=== PATIENT | female | born 1975 | race African-American/Black ===

== ENCOUNTER 2023-01-22 23:45 | Emergency (ER) | payer BC ==
--- OUTSIDE RECORDS SUMMARY | 2023-01-22 23:47 | XMS REPORT | Continuity of Care Document ---
:1975 Author Organization [facility] t Address [address] [place] [address] [place] [id number] Care Team Providers Name Role Phone Taylor Minor Attending Clinician Unavailable Payers Payer Name Policy Type Policy Number Effective Date Expiration Date S marta AETNA C1 [id number] [facility] AETNA C1 [id number] [facility] CIGNA C1 [id number] [facility] Problems Condition Condition Condition Status Onset Resolution Last Treating Co mments Source Name Details Category Date Date Treatment Clinician Date [id number] Encounter Problem Active Com mon for [facility] screening - [facility] mammogram [facility] breast [facility] cancer [facility] [id number] Encounter Problem Active Commo n for [facility] surveillan - [facility] shelbi [facility] [id number] Encounter Problem Active Com mon for [facility] finding Allergies, Adverse Reactions, Alerts This patient has no known allergies or adverse reactions. Social History Social Habit Start Date Stop Date Quantity Comments Source History of Tobacco Use Co mmon [facility] Sex Assigned At Com mon [facility] Smoking Status Start Date Stop Date Source Never Smoker [facility] Medications Ordered Filled Start Stop Current Ordering Indication Dosage Frequency Signature Comments Components Source Medication Medication Date Date Medication? Clinician (SIG) Name Name Dolores Bernal 2018- Jose E as Aurea gallo 04-02 [facility]hi directed [facility] Yes Jose E 1 tablet Common 08-13 [facility] 00:00: - [facility] 00 [facility] No 1{table QD Sprintec 0.25-35 0.25-35 2-05 t} 28 0.25-35 MG-MCG MG-MCG 00:00: [facility] No 1{table QD Sprintec 0.25-35 0.25-35 2-05 t} 28 0.25-35 MG-MCG MG-MCG 00:00: MG[facility]MCG [facility] No 1{table QD Sprintec 0.25-35 0.25-35 2-05 t} 28 0.25-35 MG-MCG MG-MCG 00:00: MG-MCG [facility] No 1{table QD Sprintec 0.25-35 0.25-35 2-05 t} 28 0.25-35 MG-MCG MG-MCG 00:00: MG-MCG [facility] No 1{table QD Sprintec 0.25-35 0.25-35 2-05 t} 28 0.25-35 MG-MCG MG-MCG 00:00: MG-MCG 00 Pantoprazol Pantoprazol No Pantoprazo e Sodium e Sodium le Sodium Glycopyrrol Glycopyrrol No Glycopyrro ate ate late Glycopyrrol Glycopyrrol No Glycopyrro ate ate late Pantoprazol Pantoprazol No Pantoprazo e Sodium e Sodium le Sodium Glycopyrrol Glycopyrrol No Glycopyrro ate ate late Pantoprazol Pantoprazol No Pantoprazo e Sodium e Sodium le Sodium Estarylla Estarylla No Estarylla Pantoprazol Pantoprazol No Pantoprazo e Sodium e Sodium le Sodium Vitamin D3 Vitamin D3 No Vitamin D3 Glycopyrrol Glycopyrrol No Glycopyrro ate ate late Estarylla Estarylla No Estarylla Pantoprazol Pantoprazol No Pantoprazo e Sodium e Sodium le Sodium Vitamin D3 Vitamin D3 No Vitamin D3 Glycopyrrol Glycopyrrol No Glycopyrro ate ate late Immunizations Ordered Immunization Filled Immunization Date Status Commen ts Source Name Name Lidocaine Lidocaine 2020-12-16 Completed [facility] 14:24:00 - [facility] Lidocaine Lidocaine 2020-12-16 Completed [facility] 14:: - [facility] Depo-Medrol Depo-Medrol 2020-12-16 Completed [facility] (Methylprednisolone) (Methylprednisolone) 14:: - [facility] 40[facility] 40mg [facility] Depo-Medrol Depo-Medrol 2020-12-16 Completed [facility] (Methylprednisolone) (Methylprednisolone) 14:: [facility] 40[facility] 40mg [facility] Lidocaine Lidocaine 2020-04-12 Completed [facility] 15:51: - [facility] Lidocaine Lidocaine 2020-04-12 Completed [facility] 15:51:00 - [facility] Lidocaine Lidocaine 2020-04-12 Completed [facility] 15:51:00 - [facility] Lidocaine Lidocaine 2020-04-12 Completed [facility] 15:51:00 - [facility] Lidocaine Lidocaine 2020-04-12 Completed [facility] 15:51:00 - [facility] Depo-Medrol Depo-Medrol 2020-04-12 Completed [facility] (Methylprednisolone) (Methylprednisolone) 15:48:00 - [facility] 40[facility] 40mg [facility] Depo-Medrol Depo-Medrol 2020-04-12 Completed [facility] (Methylprednisolone) (Methylprednisolone) 15:48:00 - [facility] 40[facility] 40mg [facility] Depo-Medrol Depo-Medrol 2020-04-12 Completed [facility] (Methylprednisolone) (Methylprednisolone) 15:48:00 - [facility] 40[facility] 40mg [facility] Depo-Medrol Depo-Medrol 2020-04-12 Completed [facility] (Methylprednisolone) (Methylprednisolone) 15:48:00 - [facility] 40[facility] 40mg [facility] Depo-Medrol Depo-Medrol 2020-04-12 Completed [facility] (Methylprednisolone) (Methylprednisolone) 15:48:[address] [facility] 40[facility] 40mg [facility] Vital Signs Vital Name Observation Time Observation Value Comments Source height 2020-12-16 14:00:00 63 [in_i] Common [facility] weight 2020-12-16 14:00:00 160 [lb_av] [facility] bmi 2020-12-16 14:00:00 28.34 kg/m2 [facility] blood pressure 2020-12-16 14:00:00 133 mm[Hg] [facility] - systolic [facility] blood pressure 2020-12-16 14:00:00 91 mm[Hg] [facility] - diastolic [facility] height 2020-04-12 15:00:00 63 [in_i] Common [facility] weight 2020-04-12 15:00:00 155 [lb_av] [facility] bmi 2020-04-12 15:00:00 27.45 kg/m2 [facility] blood pressure 2020-04-12 15:00:00 130 mm[Hg] [facility] - systolic [facility] blood pressure 2020-04-12 15:00:00 93 mm[Hg] [facility] - diastolic [facility] Procedures This patient has no known procedures. Encounters Start End Encounter Admission Attending Care Care Encounter Source Date/Time Date/Time Type Type Clinicians Facility Department ID 2023-01-05 Outpatient Minor, STLMLC STLMLC [id number] Common 10:37:00 [facility] [address] [facility] 2022-06-29 Outpatient Minor, STLMLC STLMLC [id number] Common 15:34:00 [facility] [address] Sp[facility] 2021-08-03 Outpatient Minor, STLMLC STLMLC [id number] Common 13:13:18 [facility] [address] Sp[facility] 2021-08-03 Outpatient Minor, STLMLC STLMLC [id number] Common 11:45:59 [facility] [address] Sp[facility] 2021-04-11 2021-04-11 (TEL) STLMLC STLMLC [id number] Co mmon 00:00:00 00:00:00 [facility] 2020-12-16 2020-12-16 OFFICE STLMLC STLMLC [id number] Co mmon 00:00:00 00:00:00 VISIT EST Spir it PT LEVEL 3 [facility] 2020-10-28 2020-10-28 (TEL) STLMLC STLMLC [id number] Co mmon 00:00:00 00:00:00 [facility] 2020-10-25 2020-10-25 (TEL) STLMLC STLMLC [id number] Co mmon 00:00:00 00:00:00 [facility] 2020-04-12 2020-04-12 OFFICE STLMLC STLMLC [id number] Co mmon 00:00:00 00:00:00 VISIT EST Spir it PT LEVEL 3 [facility] 2019-04-02 2019-04-02 [id number] Common 11:15:00 11:15:00 [facility] 2018-10-10 2018-10-10 [id number] Common 08:00:00 08:00:00 [facility] Results This patient has no known results.
[2023-01-23] MEDS ORDERED: KETOROLAC 30 MG/ML INJ ONE (00:19)
[2023-01-23 00:35] LABS: Absolute Lymphocytes (CBC) 1.8 K/uL (0.7-4.9); Hematocrit 37.5 % (36.0-45.0); Lymphocytes % 22.6 % (15.3-44.8); MCV 79.4 fL (80-100); MPV 9.4 fL (7.6-11.3); RBC Red Blood Cell Count 4.72 M/uL (3.86-4.86)
[2023-01-23 00:49] LABS: ALT/SGPT 32 U/L (13-56); AST/SGOT 19 U/L (15-37); Albumin 3.7 g/dL (3.4-5.0); Alkaline Phosphatase 44 U/L (45-117); BUN Blood Urea Nitrogen 16 mg/dL (7-18); Bicarbonate 23 mEq/L (21-32); Bilirubin Total 0.3 mg/dL (0.2-1.0); Glomerular Filtration Rate 63 ml/min (=/>90); Glucose Level 104 mg/dL (74-106); Magnesium 2.3 mg/dL (1.6-2.4); Potassium 3.5 mEq/L (3.5-5.1); Protein, Total 7.6 g/dL (6.4-8.2); Sodium Level 136 mEq/L (136-145); Troponin High Sensitivity 3.7 pg/mL (<58.9)
[2023-01-23 00:50] LABS: Bilirubin Direct < 0.1 mg/dL (0-0.2); Bilirubin Indirect, Calculated ND mg/dL (0.2-0.8)
--- NOTE | 2023-01-23 01:31 | ER ---
Nurse's Notes [facility] Name: Macie Marinelli Age: 47 yrs Sex: Female : 1975 Arrival Date: 01/22/2023 Time: 23:45 Bed 16 Private MD: Diagnosis: Headache, vertigo peripheral Presentation: 01/22 23:55 Chief complaint: Patient states: pt reports dizziness and headache x1 month. as6 Coronavirus screen: At this time, the client does not indicate any symptoms associated with coronavirus-19. Ebola Screen: No symptoms or risks identified at this time. Initial Sepsis Screen: Does the patient meet any 2 criteria? No. Patient's initial sepsis screen is negative. Does the patient have a suspected source of infection? No. Patient's initial sepsis screen is negative. Risk Assessment: Do you want to hurt yourself or someone else? Patient reports no desire to harm self or others. Onset of symptoms is unknown. 23:55 Acuity: NAKUL 3 as6 23:55 Method Of Arrival: Ambulatory as6 Historical: - Allergies: 23:55 No Known Allergies; as6 - PMHx: 23:55 GERD; as6 - PSHx: 23:55 section; as6 - Immunization history:: Client reports receiving the 2nd dose of the Covid vaccine, moderna. - Social history:: Smoking status: Patient denies any tobacco usage or history of. Screenin/18 00:00 Abuse screen: Denies threats or abuse. Denies injuries from another. Nutritional ha1 screening: No deficits noted. Tuberculosis screening: No symptoms or risk factors identified. 01:47 [facility] ED Fall Risk Assessment (Adult) History of falling in the last 3 months, rv including since admission No falls in past 3 months (0 pts) Confusion or Disorientation No (0 pts) Intoxicated or Sedated No (0 pts) Impaired Gait No (0 pts) Mobility Assist Device Used No (0 pt) Altered Elimination No (0 pt) Score/Fall Risk Level 0 - 2 = Low Risk Oriented to surroundings, Maintained a safe environment, Educated pt \T\ family on fall prevention, incl call for assistance when getting out of bed, Assessed \T\ reinforced patient's understanding of fall precautions, Provided non-skid footwear, Hourly rounding (assess needs \T\ fall precautionary measures) done, Used ambulatory aids as needed (educated on \T\ assisted with), Used gait belt as appropriate. Assessment: 01/22 23:48 General: Appears comfortable, Behavior is calm, cooperative. Pain: Complains of pain in ha1 left side of head Pain does not radiate. Pain currently is 8 out of 10 on a pain scale. Quality of pain is described as pressure. Neuro: Level of Consciousness is awake, alert, obeys commands, Oriented to person, place, time, situation. Neuro: Reports dizziness, since a month ago. Cardiovascular: Patient's skin is warm and dry. Respiratory: Airway is patent Respiratory effort is even, unlabored, Respiratory pattern is regular, symmetrical. GI: No signs and/or symptoms were reported involving the gastrointestinal system. Derm: Skin is healthy with good turgor, Skin is moist, Skin is normal. Musculoskeletal: Circulation, motion, and sensation intact. 01/23 00:50 Reassessment: Patient and/or family updated on plan of care and expected duration. Pain ha1 level reassessed. Patient is alert, oriented x 3, equal unlabored respirations, skin warm/dry/pink. Vital Signs: 01/22 23:55 BP 150 / 109; Pulse 87; Resp 18 S; Temp 98.1(O); Pulse Ox 100% on R/A; Weight 77.11 kg as6 (R); Height 5 ft. 3 in. (R); Pain 4/10; 18 00:00 BP 142 / 89; Pulse 67; Resp 18 S; Pulse Ox 100% ; ha1 01:00 BP 139 / 92; Pulse 56; Resp 15 S; Pulse Ox 100% on R/A; ha1 01:48 BP 127 / 91; Pulse 86; Resp 16; Temp 98; Pulse Ox 99% on R/A; rv 01/22 23:55 Body Mass Index 30.11 (77.11 kg, 160.02 cm) as6 01/22 23:55 Pain Scale: Adult as6 ED Course: 01/22 23:47 Patient arrived in ED. ag3 23:48 Luis Manuel Gaffney MD is Attending Physician. sp3 23:48 Patient has correct armband on for positive identification. Placed in gown. Bed in low ha1 position. Call light in reach. Side rails up X 1. 23:50 Ethan Loza, TAMIA is Primary Nurse. rv 23:55 Arm band placed on. as6 23:57 Triage completed. as6 01/23 00:05 Thelma Clements RN is Primary Nurse. ha1 00:05 Basic Metabolic Panel Sent. ha1 00:05 CBC with Diff Sent. ha1 00:05 LFT's Sent. ha1 00:05 Magnesium Sent. ha1 00:05 Troponin HS Sent. ha1 00:08 Primary Nurse role handed off by Thelma Clements RN rv 00:08 Ethan Loza, RN is Primary Nurse. rv 00:10 Inserted saline lock: 20 gauge in left antecubital area, using aseptic technique. Blood rv collected. 00:21 Thelma Clements RN is Primary Nurse. ha1 00:52 CT Head Brain wo Cont In Process Unspecified. EDMS 01:30 Mu Roberson MD is Referral Physician. sp3 01:46 No provider procedures requiring assistance completed. IV discontinued, intact, rv bleeding controlled, No redness/swelling at site. Pressure dressing applied. 01:48 Provided Education on: HIGH BLOOD PRESSURE. rv Administered Medications: 00:07 Drug: Ketorolac IVP 30 mg Route: IVP; Site: left antecubital; ha1 01:48 Follow up: Response: No adverse reaction; Marked relief of symptoms rv Medication: 01:47 VIS not applicable for this client. rv Outcome: 01:30 Discharge ordered by . sp3 01:47 Discharged to home ambulatory. rv 01:47 Condition: improved 01:47 Discharge instructions given to patient, Instructed on discharge instructions, follow up and referral plans. medication usage, Demonstrated understanding of instructions, follow-up care, medications, Prescriptions given X 1. 01:48 Patient left the ED. rv Signatures: Dispatcher [employer] EDCA Ethan Loza, TAMIA CANTRELL rv Kim West 3 Luis Manuel Gaffney MD MD sp3 Deion Harp RN RN as6 Thelma Clements RN RN ha1 Corrections: (The following items were deleted from the chart) 00:22 00:21 Ketorolac IVP 30 mg IVP in left antecubital ha1 ha1
--- NOTE | 2023-01-23 01:31 | EDPHYS ---
Physician Documentation [facility] Name: Macie Marinelli Age: 47 yrs Sex: Female : 1975 Arrival Date: 01/22/2023 Time: 23:45 Bed 16 Private MD: ED Physician Luis Manuel Gaffney HPI: 01/23 00:03 This 47 yrs old Black Female presents to ER via Ambulatory with complaints of Dizziness sp3 and headache. 00:03 47-year-old female with history of GERD who presents to the ED with chief complaint sp3 headache and vertigo for greater than 3 days. Patient saw her PCP who did outpatient laboratory labs and prescribed meclizine p.o. which has minimally helped. Today patient developed worsening headache and so she decided to present to the ED for evaluation. She denies thunderclap headache, fever, neck pain, chest pain, shortness of breath, URI symptoms, sinus pain, abdominal pain, nausea, vomiting, diarrhea, rash, syncope, near syncope, focal neurodeficit, known sick contacts, recent travel history, or any other signs or symptoms on ROS at this time. Pain is currently described as a 4 out of 10 and waxes and wanes. Headache is generalized and vertigo is worse with movement but self resolves. Patient did drive herself to the ED today.. Historical: - Allergies: 01/22 23:55 No Known Allergies; as6 - PMHx: 23:55 GERD; as6 - PSHx: 23:55 section; as6 - Immunization history:: Client reports receiving the 2nd dose of the Covid vaccine, moderna. - Social history:: Smoking status: Patient denies any tobacco usage or history of. ROS: 01/23 00:04 Constitutional: Negative for fever, chills, and weight loss, Eyes: Negative for injury, sp3 pain, redness, and discharge, ENT: Negative for injury, pain, and discharge, Neck: Negative for injury, pain, and swelling, Cardiovascular: Negative for chest pain, palpitations, and edema, Respiratory: Negative for shortness of breath, cough, wheezing, and pleuritic chest pain, Abdomen/GI: Negative for abdominal pain, nausea, vomiting, diarrhea, and constipation, Back: Negative for injury and pain, MS/Extremity: Negative for injury and deformity, Skin: Negative for injury, rash, and discoloration, Allergy/Immunology: Negative for hives, rash, and allergies, Endocrine: Negative for neck swelling, polydipsia, polyuria, polyphagia, and marked weight changes, Hematologic/Lymphatic: Negative for swollen nodes, abnormal bleeding, and unusual bruising. All other systems are negative. Exam: 00:04 Constitutional: This is a well developed, well nourished patient who is awake, alert, sp3 and in no acute distress. Head/Face: Normocephalic, atraumatic. Eyes: Pupils equal round and reactive to light, extra-ocular motions intact. Lids and lashes normal. Conjunctiva and sclera are non-icteric and not injected. Cornea within normal limits. Periorbital areas with no swelling, redness, or edema. ENT: Nares patent. No nasal discharge, no septal abnormalities noted. External auditory canals are clear. Oropharynx with no redness, swelling, or masses, exudates, or evidence of obstruction, uvula midline. Mucous membranes moist. Neck: Trachea midline, no thyromegaly or masses palpated, and no cervical lymphadenopathy. Supple, full range of motion without nuchal rigidity, or vertebral point tenderness. No Meningismus. Chest/axilla: Normal chest wall appearance and motion. Nontender with no deformity. No lesions are appreciated. Cardiovascular: Regular rate and rhythm with a normal S1 and S2. No gallops, murmurs, or rubs. Normal PMI, no JVD. No pulse deficits. Respiratory: Lungs have equal breath sounds bilaterally, clear to auscultation and percussion. No rales, rhonchi or wheezes noted. No increased work of breathing, no retractions or nasal flaring. Abdomen/GI: Soft, non-tender, with normal bowel sounds. No distension or tympany. No guarding or rebound. No evidence of tenderness throughout. Back: No spinal tenderness. No costovertebral tenderness. Full range of motion. Skin: Warm, dry with normal turgor. Normal color with no rashes, no lesions, and no evidence of cellulitis. MS/ Extremity: Pulses equal, no cyanosis. Neurovascular intact. Full, normal range of motion. Neuro: Awake and alert, GCS 15, oriented to person, place, time, and situation. Cranial nerves II-XII grossly intact. Motor strength 5/5 in all extremities. Sensory grossly intact. Cerebellar exam normal. Normal gait. Psych: Awake, alert, with orientation to person, place and time. Behavior, mood, and affect are within normal limits. 01:34 ECG was reviewed by the Attending Physician. EKG demonstrates normal sinus rhythm at 61 sp3 bpm with normal intervals, normal axis, normal QRS, nonspecific diffuse ST/T changes without evidence of ischemia particularly in leads III with no reciprocal changes. Vital Signs: 01/22 23:55 BP 150 / 109; Pulse 87; Resp 18 S; Temp 98.1(O); Pulse Ox 100% on R/A; Weight 77.11 kg as6 (R); Height 5 ft. 3 in. (R); Pain 4/10; 01/23 00:00 BP 142 / 89; Pulse 67; Resp 18 S; Pulse Ox 100% ; ha1 01:00 BP 139 / 92; Pulse 56; Resp 15 S; Pulse Ox 100% on R/A; ha1 01:48 BP 127 / 91; Pulse 86; Resp 16; Temp 98; Pulse Ox 99% on R/A; rv 01/22 23:55 Body Mass Index 30.11 (77.11 kg, 160.02 cm) as6 01/22 23:55 Pain Scale: Adult as6 MDM: 01/22 23:57 Patient medically screened. sp3 01/23 00:05 Data reviewed: vital signs, nurses notes, lab test result(s), EKG, radiologic studies. sp3 ED course: 47-year-old female with vertigo and headache. Differential diagnosis is broad and includes inner ear pathology including labyrinthitis, CVA, ICH, tumor or mass, viral syndrome, among others. I am not highly suspicious for central vertigo and this is most likely peripheral in nature. Will obtain CT scan of the head, laboratory values, EKG, and administer ketorolac 30 mg IV for pain control. Patient declined further meclizine at this time. If work-up is negative, would safely discharge patient home with neurology follow-up.. 01:30 ED course: CT scan is negative and patient is improved. We will safely discharge her sp3 home with follow-up with neurology Dr. Roberson.. 01/22 23:59 Order name: Basic Metabolic Panel; Complete Time: 01:04 as6 01/22 23:59 Order name: CBC with Diff; Complete Time: 01:04 01/22 23:59 Order name: LFT's; Complete Time: 01:04 01/22 23:59 Order name: Magnesium; Complete Time: 01:04 01/22 23:59 Order name: Troponin HS; Complete Time: 01:04 01/22 23:59 Order name: CT Head Brain wo Cont 01/22 23:59 Order name: EKG; Complete Time: 00:00 01/22 23:59 Order name: Cardiac monitoring; Complete Time: 00:05 01/22 23:59 Order name: EKG - Nurse/Tech; Complete Time: 00:46 01/22 23:59 Order name: IV Saline Lock; Complete Time: 00:05 01/22 23:59 Order name: Labs collected and sent; Complete Time: 00:05 01/22 23:59 Order name: O2 Sat Monitoring; Complete Time: 00:05 Administered Medications: 00:07 Drug: Ketorolac IVP 30 mg Route: IVP; Site: left antecubital; ha1 01:48 Follow up: Response: No adverse reaction; Marked relief of symptoms rv Disposition Summary: 01/23/23 01:30 Discharge Ordered Location: Home sp3 Condition: Stable sp3 Diagnosis - Headache, vertigo peripheral sp3 Followup: sp3 - With: Mu Roberson MD - When: Upon discharge from the Emergency Department - Reason: Recheck today's complaints Discharge Instructions: - Discharge Summary Sheet sp3 - General Headache Without Cause sp3 - Vertigo sp3 Forms: - Medication Reconciliation Form sp3 - Thank You Letter sp3 - Antibiotic Education sp3 - Prescription Opioid Use sp3 - Patient Portal Instructions sp3 Prescriptions: - Diclofenac Sodium 75 mg Oral Tablet Sustained Release - take 1 tablet by ORAL route 2 times per day; 30 tablet; Refills: 0, Product sp3 Selection Permitted Signatures: Dispatcher [employer] Luis Manuel Echeverria MD MD sp3 Deion Harp RN RN as6 Thelma Clements RN RN ha1 Ethan Loza RN rv
[2023-01-23 03:35] VITALS: BP 127/91; TEMP 98; O2SAT 99
--- NOTE | 2023-01-23 16:19 | RAD REPORT ---
EXAM DESCRIPTION: CT - Head Brain Wo Cont - 01/23/2023 1:55 am CLINICAL HISTORY: 47 years Female Dizziness;Headache COMPARISON: None TECHNIQUE: Contiguous axial images of the brain were obtained without the administration of intraven ous contrast.This exam was performed according to our departmental dose-optimization program which in cludes use of Automated Exposure Control, adjustment of the mA and/or kV according to patient size an d/or use of iterative reconstruction technique. DLP: 846 mGy*cm FINDINGS: Brain: No acute intracranial hemorrhage. No extra-axial collection. No mass effect or laureen iation. Ventricles: Within normal limits in size. Globes and orbits: No acute abnormality. Bones: No acute osseous finding Paranasal sinuses: Paranasal sinuses are clear. Mastoid air cells: Well pneumatized. Soft tissues: Within normal limits IMPRESSION: No acute intracranial abnormality. Electronically signed by: Yg Otoole DO 01/23/2023 1:04 AM CDT Due to temporary technical issues with the PACS/Fluency reporting system, reports are being signed by the in house radiologists without review as a courtesy to insure prompt reporting. The interpreting radiologist is fully responsible for the content of the report.
--- NOTE | 2023-01-23 20:38 | EKG ---
Test Date: 2023-01-23 Test Time: 00:39:08 Building Operator: MARIO MEASUREMENT RESULTS: Intervals: Rate: 61 RI: 158 QRSD: 78 QT: 446 QTc: 448 [place]: P: 50 RI: 158 QRS: 51 T: 43 INTERPRETIVE STATEMENTS: Normal sinus rhythm Normal ECG Compared to ECG 02/28/2008 11:43:54 Sinus arrhythmia no longer present Electronically Signed On 01-23-23 20:37:21 CDT by Jose Peters
== END 2023-01-23 01:48 | disposition home or self-care (01) ==
LOC: ER 23:45
DX: R51.9 Headache, unspecified (principal); H81.399 Other peripheral vertigo, unspecified ear
CPT/HCPCS: 36415; 70450; 80048; 80076; 83735; 84484; 85025; 93005; 96374; 99284

== ENCOUNTER 2023-10-05 06:32 | Day surgery (SDC) | payer BC ==
[2023-10-03 16:13] LABS: Absolute Eosinophils 0.1 K/uL (0-0.5); Absolute Lymphocytes (CBC) 1.8 K/uL (0.7-4.9); Absolute Monocytes 0.4 K/uL (0.1-1.3); Absolute Neutrophil 4.6 K/uL (1.8-8.0); Basophils % 0.5 % (0-1.3); Eosinophils % 1.4 % (0-4.4); Hematocrit 38.7 % (36.0-45.0); Hemoglobin 12.6 g/dL (12.0-15.0); Lymphocytes % 25.6 % (15.3-44.8); MCH 25.9 pg (27.0-35.0); MCHC 32.5 g/dL (32.0-36.0); MCV 79.7 fL (80-100); MPV 9.3 fL (7.6-11.3); Monocytes % 6.4 % (3.3-12.3); Neutrophils % 66.1 % (41.7-73.7); Platelets 254 thou/uL (152-406); RBC Red Blood Cell Count 4.86 M/uL (3.86-4.86); Red Cell Distribution Width 13.5 % (12.1-15.2)
[2023-10-03 16:29] LABS: Anion Gap 6.3 mEq/L (5.0-15.0); Potassium 4.3 mEq/L (3.5-5.1)
--- NOTE | 2023-10-03 16:53 | RAD REPORT ---
EXAM DESCRIPTION: Shannan Stone (2 Views)10/03/2023 4:12 pm CLINICAL HISTORY: Preop COMPARISON: 2012 FINDINGS: The lungs appear clear of acute infiltrate. The heart is normal size IMPRESSION: No acute abnormalities displayed
--- NOTE | 2023-10-04 14:00 | EKG ---
Test Date: 2023-10-03 Test Time: 15:55:31 Blood Donor Recruiter: KUNAL MEASUREMENT RESULTS: Intervals: Rate: 52 DE: 140 QRSD: 72 QT: 446 QTc: 414 [place]: P: 44 DE: 140 QRS: 52 T: 40 INTERPRETIVE STATEMENTS: Sinus bradycardia Otherwise normal ECG Compared to ECG 01/23/2023 00:39:08 Sinus rhythm no longer present Electronically Signed On 10-04-23 13:59:32 CDT by Vinicius Galeano
[2023-10-05] MEDS: Ringers Lactate 1,000 ML IV ONE (06:50)
[2023-10-05] MEDS ORDERED: SUGAMMADEX SODIUM 200 MG/2 ML VIAL IV ONE (07:04)
[2023-10-05] MEDS ORDERED: SUCCINYLCHOLINE 20 MG/ML (10 ML) IV ONE (07:04)
[2023-10-05] MEDS ORDERED: propofoL 200 MG/20 ML VIAL IV ONE (07:11)
[2023-10-05] MEDS ORDERED: FENTANYL CITR 100 MCG/2 ML ONE (07:14)
[2023-10-05] MEDS ORDERED: MIDAZOLAM HCL 2 MG/2 ML INJ ONE (07:14)
[2023-10-05] MEDS ORDERED: LIDOCAINE 2% MPF 5 ML VIAL ONE (07:14)
[2023-10-05] MEDS ORDERED: ONDANSETRON 4 MG/2 ML VIAL ONE (07:14)
[2023-10-05] MEDS: CEFAZOLIN SODIUM 1 GM/VIAL ONE (07:22)
[2023-10-05 07:47] VITALS: O2SAT 100
[2023-10-05] MEDS ORDERED: dexAMETHasone 10 MG/ML VIAL ONE (08:01)
[2023-10-05] MEDS ORDERED: KETOROLAC 30 MG/ML INJ ONE (08:24)
--- NOTE | 2023-10-05 08:30 | P.BOP ---
Preoperative diagnosis: tender right thigh subQ mass Postoperative diagnosis: same Primary procedure: Excisional biopsy of tender right thigh subQ mass 3x3cm Estimated blood loss: <10cc Specimen: mass Findings: mass Anesthesia: General Complications: None Transferred to: Recovery Room Condition: Good
--- NOTE | 2023-10-05 11:12 | OP ---
Date of Procedure: 10/05/2023 Surgeon: Kevin Mancilla MD Preoperative Diagnosis: Right thigh tender subcutaneous mass. Postoperative Diagnosis: Right thigh tender subcutaneous mass. Procedure: Excisional biopsy of right thigh tender subcutaneous mass 3 x 3 cm. Anesthesia: General plus local. Complications: None. Estimated Blood Loss: Less than 10 cc. Indications: This is the case of a female, who comes to us with increasing enlarging mass of the rig ht thigh region. She has been observing for some time that is increasing in size and discomfort. No w, she wants it excised and biopsied. The benefits, alternatives, and risks of excisional biopsy of right thigh mass were fully explained, which include, but not limited to infection, bleeding, damage to adjacent structures, anesthesia complication, recurrence, ND, and even . She also understand s this may not relieve the symptoms. She might need more than one surgical intervention. She unders tood, signed a consent. The area of concern was marked by me and the patient in the holding room. Description Of Procedure: The patient was brought to the operating room, placed in supine position. Anesthesia was done without complication. Time-out was called. Right thigh was prepped and draped in sterile fashion. We made an incision in that region, lidocaine later, so we do not rell e it disappear. Incision was carried down and once we have the mass secured in the subcutaneous tiss ue, we proceeded to remove the mass. Right on top of fascia muscle does not seem to be p enetrating the fascia of the muscle or included muscle. The area was irrigated and then we proceeded to close in layers 3-0 chromic deeper layers and then 3-0 chromic more superficial and then a Dermab ond-like solution on the skin. Sponge count and instrument counts were correct. The patient tolerat ed the procedure well. Local anesthetic was applied before closure and also hemostasis was applied b efore closure. The patient was sent to recovery in stable condition. GRACE/MODL Voice ID: [id number] Report ID: [id number]
[2023-10-05 11:20] VITALS: BP 108/73; TEMP 98
--- NOTE | 2023-10-08 06:06 | DS ---
Date of Discharge: 10/05/2023 Diagnosis: Tender right thigh subcutaneous mass. Procedure: Excisional biopsy of tender right thigh subcutaneous mass. Disposition: Home. Activity: As tolerated. No heavy lifting. Follow up in my office in 1 week, call for appointment [phone]. Keep area intact for 48 hours, then may remove outer dressings and shower, but if possible, she should put some compression dressings in that area to diminish the chance of seroma. GRACE/MEGAN Voice ID: [id number] Report ID: [id number]
== END 2023-10-05 10:06 | disposition home or self-care (01) ==
LOC: OR 06:32
PROVIDERS: ATTEND Surgery
PROC: 0JBL0ZZ Excision of Right Upper Leg Subcutaneous Tissue and Fascia, Open Approach (ICD-10-PCS; principal; 2023-10-05 07:30)
DX: D17.23 Benign lipomatous neoplasm of skin and subcutaneous tissue of right leg (principal); Z80.9 Family history of malignant neoplasm, unspecified
CPT/HCPCS: 93005; 85025; 80048; 36415; 81025; 88304; 71046; 11403; J2704; J2001; J2250; J3010; J1100; J2405; J7120; J0690

== ENCOUNTER 2024-04-16 07:02 | Day surgery (SDC) | payer BC ==
[2024-04-14 14:48] LABS: Absolute Eosinophils 0.1 K/uL (0-0.5); Absolute Lymphocytes (CBC) 1.6 K/uL (0.7-4.9); Absolute Monocytes 0.5 K/uL (0.1-1.3); Absolute Neutrophil 4.6 K/uL (1.8-8.0); Basophils % 0.6 % (0-1.3); Eosinophils % 1.2 % (0-4.4); Hematocrit 38.8 % (36.0-45.0); Hemoglobin 12.6 g/dL (12.0-15.0); Lymphocytes % 23.9 % (15.3-44.8); MCHC 32.4 g/dL (32.0-36.0); MCV 80.2 fL (80-100); MPV 9.6 fL (7.6-11.3); Neutrophils % 67.3 % (41.7-73.7); Platelets 214 thou/uL (152-406); RBC Red Blood Cell Count 4.85 M/uL (3.86-4.86); Red Cell Distribution Width 13.4 % (12.1-15.2)
[2024-04-14 15:00] LABS: Anion Gap 6.6 mEq/L (5.0-15.0); Potassium 4.6 mEq/L (3.5-5.1)
--- NOTE | 2024-04-14 15:57 | RAD REPORT ---
EXAM: Chest Pa And Lat (2 Views) HISTORY: Pre op pending excisional biopsy COMPARISON: 10/03/2023 FINDINGS: LUNGS/PLEURA: The lungs are clear. No pleural effusions or pneumothorax. No pulmonary edema. MEDIASTINUM: The mediastinal silhouette is within normal limits. CARDIAC: The cardiac silhouette is within normal limits. UPPER ABDOMEN: No significant abnormality. BONES: No acute fracture. LINES/TUBES/OTHER: N/A IMPRESSION: No evidence of acute cardiopulmonary disease
--- NOTE | 2024-04-15 12:28 | EKG ---
Test Date: 2024-04-14 Test Time: 14:27:28 Pillowcase Cutter: AGUILA MEASUREMENT RESULTS: Intervals: Rate: 58 SD: 144 QRSD: 90 QT: 428 QTc: 420 [place]: P: 66 SD: 144 QRS: 80 T: 75 INTERPRETIVE STATEMENTS: Sinus bradycardia Otherwise normal ECG Compared to ECG 10/03/2023 15:55:31 No significant changes Electronically Signed On 04-15-24 12:26:07 CDT by El Martinez
[2024-04-16] MEDS ORDERED: Ringers Lactate 1,000 ML IV ONE (07:19)
[2024-04-16] MEDS ORDERED: ONDANSETRON 4 MG/2 ML VIAL ONE (07:34)
[2024-04-16] MEDS ORDERED: LIDOCAINE 2% MPF 5 ML VIAL ONE (07:34)
[2024-04-16] MEDS ORDERED: FENTANYL CITR 100 MCG/2 ML ONE (07:34)
[2024-04-16] MEDS ORDERED: MIDAZOLAM HCL 2 MG/2 ML INJ ONE (07:34)
[2024-04-16] MEDS ORDERED: propofoL 200 MG/20 ML VIAL IV ONE (07:34)
[2024-04-16] MEDS: CEFAZOLIN SODIUM 1 GM/VIAL ONE (08:06)
--- NOTE | 2024-04-16 08:26 | P.BOP ---
Preoperative diagnosis: tender lateral thigh subQ mass Postoperative diagnosis: same Primary procedure: Excisional biopsy of tender lateral thigh subQ mass 2x2cm Estimated blood loss: <10cc Specimen: mass Findings: mass Anesthesia: General Complications: None Transferred to: Recovery Room Condition: Good
[2024-04-16 08:41] VITALS: O2SAT 100
--- NOTE | 2024-04-16 09:18 | OP ---
Date of Procedure: 04/16/2024 Surgeon: Kevin Mancilla MD Preoperative Diagnosis: Tender lateral right side subcutaneous mass. Postoperative Diagnosis: Tender lateral right side subcutaneous mass. Procedure: Excisional biopsy of tender right thigh lateral subcutaneous mass 2 x 2 cm. Estimated Blood Loss: Less than 10 cc. Finding: Mass. Specimen: Mass. Anesthesia: General plus local. Indications: This is a case of a 48-year-old who comes to us with this tender mass in the right thig h region. She can palpate it. It is getting bigger. She wants that excised. The benefits, alterna tives, and risks of excisional biopsy of right thigh subcutaneous mass fully explained, which include , but not limited to infection, bleeding, damage to adjacent structures, anesthesia complication, rec urrence, NH, and even . She also understands this may not relieve the symptoms. She might need more than one surgical intervention. She understood, signed a consent. The area of concern was mar ked by me and the patient in the holding room. Procedure In Detail: The patient brought to the operating room, placed in supine position. Anesthes ia was without complication. Right thigh was prepped and draped in sterile fashion. A time-out was called. Incision was made over the area that she pinpoint. Incision was carried down deep to the choi bcutaneous tissue. We find this fatty tumor present that was excised in 1 unit. No other masses pal pated. Area was irrigated. Hemostasis was obtained. We have to close the deep layers with 3-0 hemodialysis lab technician natalia, mid layers with 3-0 chromic and then subcuticular 3-0 chromic with Steri-Strip on top. Local an esthesia was applied at the end of the case. The patient tolerated the procedure well. Area was cov ered with sterile dressings. The sponge count and instrument counts correct. HM/MODL Voice ID: [id number] Report ID: [id number]
--- NOTE | 2024-04-16 09:18 | DS ---
Diagnosis: Tender right thigh subcutaneous mass. Procedure: Excisional biopsy of tender right thigh lateral subcutaneous mass. Condition: Stable. Disposition: Home. Activity: As tolerated. No heavy lifting. Discharge Instructions: Follow up in my office in 1 week. Call for appointment at [phone]. Keep a mily dry for 48 hours, then may shower. Keep Steri-Strips intact. GRACE/MEGAN Voice ID: [id number] Report ID: [id number]
[2024-04-16] MEDS: CODEINE 30MG/APAP 300MG TAB ONE (09:36)
[2024-04-16 09:44] VITALS: BP 108/76; TEMP 97.8
== END 2024-04-16 10:37 | disposition home or self-care (01) ==
LOC: OR 07:02
PROVIDERS: ATTEND Surgery
PROC: 0JBL0ZZ Excision of Right Upper Leg Subcutaneous Tissue and Fascia, Open Approach (ICD-10-PCS; principal; 2024-04-16 08:15)
DX: D17.23 Benign lipomatous neoplasm of skin and subcutaneous tissue of right leg (principal)
CPT/HCPCS: 11402; 93005; 85025; 80048; 36415; 81025; 88304; 71046; J2704; J2001; J2250; J3010; J2405; J7120; J0690